=== PATIENT | female | born 1990 | race Caucasian/White ===

== ENCOUNTER → 2019-07-29 | Outpatient (CLI) | payer SELFPAY ==
--- NOTE | 2019-07-29 11:51 | RADIOLOGY REPORT (SQ) ---
EXAM DESCRIPTION: LUMBAR SPINE COMPLETE COMPLETED DATE/TIME: 07/29/2019 11:30 am REASON FOR STUDY: RADICULOPATHY, LUMBAR REGION M54.16 RADICULOPATHY, LUMBAR REGION COMPARISON: None. NUMBER OF VIEWS: Five views including obliques. TECHNIQUE: AP, lateral, oblique, and sacral radiographic images acquired of the lumbar spine. LIMITATIONS: None. FINDINGS: MINERALIZATION: Normal. SEGMENTATION: Normal. No transitional anatomy. ALIGNMENT: Minimal levoscoliosis at L1-2. VERTEBRAE: Maintained height. No fracture or worrisome bone lesion. DISCS: Preserved height. No significant osteophytes or end plate irregularity. POSTERIOR ELEMENTS: Pedicles and facets are intact. No pars defect or posterior arch defects. HARDWARE: None in the spine. PARASPINAL SOFT TISSUES: Normal. PELVIS: Intact as visualized. No fractures or worrisome bone lesions. SI joints intact. OTHER: No other significant finding. IMPRESSION: Minimal scoliosis. TECHNICAL DOCUMENTATION: JOB ID: [id number] [employer]- All Rights Reserved Reading location - IP/workstation name: [email or web address]
== END ==
LOC: OD 11:10
PROVIDERS: ATTEND Nurse Practitioner Family
DX: M54.16 Radiculopathy, lumbar region (principal)
CPT/HCPCS: 72110

== ENCOUNTER 2020-09-22 19:55 | Emergency (ER) | payer MEDICAID ==
[2020-09-22] MEDS ORDERED: KETOROLAC TROMETHAMINE INJ/PF 30 MG/1 ML SDV IV ONE (21:00)
--- NOTE | 2020-09-22 21:02 | ER Document Report ---
ED Medical Screen (RME) - General Chief Complaint: Abdominal Pain Stated Complaint: ABDOMINAL PAIN Time Seen by Provider: 09/22/20 20:56 Primary Care Provider: POLLY SRIVASTAVA FNP-C [Primary Care Provider] - Follow up as needed Mode of Arrival: Medic Information source: Patient Notes: 29-year-old female presents to ED for complaint of abdominal pain that started all over and now is just to the right upper abdomen and around to the back. She states that she has had no appetite morning and then this evening she tried to eat and she started vomiting. She states she has never had a history of kidney stones she does have history of PCOS. She also has a history of migraines asthma and anxiety. She states she does smoke 1/2 pack drinks occasionally but does not use any illicit drugs. She states that the EMS did give her Zofran and some fluids in the ambulance. I have greeted and performed a rapid initial assessment of this patient. A comprehensive ED assessment and evaluation of the patient, analysis of test results and completion of medical decision making process will be conducted by an additional ED providers. TRAVEL OUTSIDE OF THE [place] IN LAST 30 DAYS: No - Related Data Allergies/Adverse Reactions: No Known Allergies Allergy (Verified 09/22/20 20:57) Physical Exam - Vital signs Vitals: Temp Pulse Resp BP Pulse Ox 98.8 F 96 14 120/73 98 09/22/20 20:31 09/22/20 20:31 09/22/20 20:31 09/22/20 20:31 09/22/20 20:31 Course - Vital Signs Vital signs: Temp Pulse Resp BP Pulse Ox 98.8 F 96 14 120/73 98 09/22/20 20:31 09/22/20 20:31 09/22/20 20:31 09/22/20 20:31 09/22/20 20:31 Doctor's Discharge - Discharge Referrals: POLLY SRIVASTAVA FNP-C [Primary Care Provider] - Follow up as needed
[2020-09-22] MEDS ORDERED: MORPHINE SULFATE 10 MG/ML INJ IV ONE (23:05)
[2020-09-22] MEDS ORDERED: DIPHENHYDRAMINE HCL 50 MG/ML VIAL IV ONE (23:05)
[2020-09-22] MEDS ORDERED: NORMAL SALINE 1000 ML 1,000 ML IV ONE (23:06)
--- NOTE | 2020-09-22 23:10 | ER Document Report ---
ED GI/ - General Chief Complaint: Abdominal Pain Stated Complaint: ABDOMINAL PAIN Time Seen by Provider: 09/22/20 20:56 Mode of Arrival: Medic Notes: Patient is a 29-year-old female that comes emergency department chief complaint of nausea, vomiting, and abdominal pain that is mainly on the right side of the abdomen and radiates around to the mid back. Patient came by EMS and received Zofran in route, received Toradol from triage, states that she still is in a lot of pain. She states she has had intermittent pain for the past couple of days but it became a lot worse tonight and she vomited when she tried to eat. She has had a cholecystectomy and umbilical hernia repair. She has had a tubal ligation. She has a history of PCOS. She denies history of kidney stones. She denies dysuria, vaginal bleeding or discharge. She does admit to some constipation but states she has used milk of magnesia and a stool softener and has had bowel movements over the past couple of days. Remaining medical history reported to be migraines, asthma, anxiety, smoking, occasional alcohol. Denies recreational drugs. Denies . TRAVEL OUTSIDE OF THE [place] IN LAST 30 DAYS: No - Related Data Allergies/Adverse Reactions: acetaminophen [From Tylenol-Codeine #3] Adverse Reaction (Verified 09/22/20 22:37) clindamycin Adverse Reaction (Verified 09/22/20 22:37) codeine [From Tylenol-Codeine #3] Adverse Reaction (Verified 09/22/20 22:37) Home Medications: effexor. advair. albuterol. amlodipine. singular. clin dymycin Past Medical History - General Information source: Patient - Social History Smoking Status: Current Every Day Smoker Chew tobacco use (# tins/day): No Smoking Education Provided: Yes - <3 min Frequency of alcohol use: Occasional Drug Abuse: None Lives with: Family Family History: Reviewed & Not Pertinent Past Surgical History: Reports: Hx Cholecystectomy, Hx Tubal Ligation, Hx Umbilical Hernia - Immunizations Immunizations up to date: Yes Hx Diphtheria, Pertussis, Tetanus Vaccination: Yes Review of Systems - Review of Systems Constitutional: No symptoms reported EENT: No symptoms reported Cardiovascular: No symptoms reported Respiratory: No symptoms reported Gastrointestinal: See HPI Genitourinary: See HPI Female Genitourinary: No symptoms reported Musculoskeletal: No symptoms reported Skin: No symptoms reported Hematologic/Lymphatic: No symptoms reported Neurological/Psychological: No symptoms reported Physical Exam - Vital signs Vitals: Temp Pulse Resp BP Pulse Ox 98.8 F 96 14 120/73 98 09/22/20 20:31 09/22/20 20:31 09/22/20 20:31 09/22/20 20:31 09/22/20 20:31 - Notes Notes: GENERAL: Patient is restless and appears uncomfortable but she is not in severe distress. Oriented and alert HEAD: Normocephalic, atraumatic. EYES: Pupils equal, round, and reactive to light. Extraocular movements intact. ENT: Oral mucosa moist, tongue midline. Oropharynx unremarkable. Airway patent. NECK: Full range of motion. Supple. Trachea midline. No lymphadenopathy. LUNGS: Clear to auscultation bilaterally, no wheezes, rales, or rhonchi. No respiratory distress. Non-tender chest wall. HEART: Regular rate and rhythm. No murmur ABDOMEN: There is generalized mid to upper abdominal tenderness and some epigastric tenderness noted. Lower abdomen seems benign. No guarding or rigidity. No distention. Bowel sounds present throughout. EXTREMITIES: Moves all 4 extremities spontaneously. No edema, normal radial and dorsalis pedis pulses bilaterally. No cyanosis. BACK: No CVA tenderness. No cervical, thoracic, lumbar midline tenderness. No saddle anesthesia, normal distal neurovascular exam. Moves all extremities in full range of motion. NEUROLOGICAL: Alert and oriented x3. Normal speech. Cranial nerves II through XII grossly intact. Strength 5/5 in all extremities. PSYCH: Normal affect, normal mood. SKIN: Warm, dry, normal turgor. No rashes or lesions noted. Course - Re-evaluation Re-evalutation: Patient much more comfortable on reevaluation after pain and nausea medication. CBC unremarkable, chemistry unremarkable, urinalysis unremarkable. hCG is negative. I did review the CAT scan from triage and this shows no acute process. Appendix visualized is normal. No passing ureterolithiasis or obstruction, no concerning findings. No significant constipation either. Repeated abdominal exam, pain is definitely upper abdomen. She has had a cholecystectomy. Patient takes frequent anti-inflammatories, smokes, has a long history of reflux reportedly. I suspect gastritis. Based on her exam and work-up I have a low suspicion of acute abdomen. I discussed this with patient, discussed recommendations, follow-up, return precautions. Patient states understanding and agreement. Stable and well-appearing at time of discharge. - Vital Signs Vital signs: Temp Pulse Resp BP Pulse Ox 98.1 F 97 14 119/81 98 09/23/20 01:31 09/23/20 01:31 09/22/20 20:31 09/23/20 01:31 09/23/20 01:31 - Laboratory Result Diagrams: 09/22/20 22:45 09/22/20 22:45 Laboratory results interpreted by me: 09/22/20 09/22/20 22:45 22:45 WBC 10.9 H RBC 5.66 H MCV 72 L MCH 23.7 L RDW 15.2 H Sodium 135.7 L Discharge - Discharge Clinical Impression: Abdominal pain Qualifiers: Abdominal location: generalized Qualified Code(s): R10.84 - Generalized abdominal pain Vomiting Qualifiers: Vomiting type: unspecified Vomiting Intractability: non-intractable Nausea presence: with nausea Qualified Code(s): R11.2 - Nausea with vomiting, unspecified Condition: Stable Disposition: HOME, SELF-CARE Instructions: Oral Narcotic Medication ([facility]) Additional Instructions: Based on your symptoms, examination, and work-up I suspect you have gastritis (inflammation of your upper gastrointestinal tract). Take Phenergan/Zofran for nausea, take Carafate and Pepcid as prescribed to help treat this, you can take additional Rolaids, Tums, Maalox, etc. if needed. You can take Tylenol and the medication provided tonight for pain. Avoid NSAIDs, alcohol, smoking, caffeine, spicy food. Start with clear fluids, progress to bland diet. Follow-up with primary care for additional evaluation and treatment including possible H. pylori testing. Return if you worsen including uncontrolled vomiting, vomiting blood, black stools, severe pain, fever of 100.4 or greater, or any other concerning or worsening symptoms. Prescriptions: Sucralfate [Carafate 1 gm Tablet] 1 gm PO QID #20 tablet Famotidine [Pepcid 20 mg Tablet] 20 mg PO BID #20 tablet Promethazine HCl [Phenergan 25 mg Tablet] 25 mg PO Q6H PRN #20 tablet PRN Reason: Forms: Smoking Cessation Education
[2020-09-22 23:11] LABS: ABSOLUTE BASOPHILS # (AUTO) 0.1 10^3/uL (0.0-0.2); ABSOLUTE EOSINOPHILS # (AUTO) 0.1 10^3/uL (0.0-0.6); ABSOLUTE LYMPHOCYTES (AUTO) 3.8 10^3/uL (0.5-4.7); ABSOLUTE MONOCYTES (AUTO) 0.7 10^3/uL (0.1-1.4); ABSOLUTE NEUT (AUTO) 6.3 10^3/uL (1.7-8.2); HEMOGLOBIN 13.4 g/dL (12.0-15.5); TOTAL CELLS COUNTED % (AUTO) 100 %
[2020-09-22 23:28] LABS: ALBUMIN 4.1 g/dL (3.5-5.0); ALKALINE PHOSPHATASE 85 U/L (38-126); ANION GAP 6 (5-19); ASPARTATE AMINO TRANSFERASE 25 U/L (14-36); BILIRUBIN,DIRECT 0.1 mg/dL (0.0-0.4); BILIRUBIN,TOTAL 0.4 mg/dL (0.2-1.3); BLOOD UREA NITROGEN 8 mg/dL (7-20); CALCIUM 9.4 mg/dL (8.4-10.2); CARBON DIOXIDE 26 mmol/L (22-30); CHLORIDE 104 mmol/L (98-107); GLUCOSE 78 mg/dL (75-110); POTASSIUM 4.3 mmol/L (3.6-5.0); TOTAL PROTEIN 7.4 g/dL (6.3-8.2)
[2020-09-22 23:30] LABS: BASOPHILS % (AUTO) 0.7 % (0-2); EOSINOPHILS % (AUTO) 0.7 % (0-6); HEMATOCRIT 40.7 % (36.0-47.0); LYMPHOCYTES % (AUTO) 34.8 % (13-45); MEAN CORPUSCULAR HEMOGLOBIN 23.7 pg (27.0-33.4); MEAN CORPUSCULAR HGB CONC 32.9 g/dL (32.0-36.0); MEAN CORPUSCULAR VOLUME 72 fl (80-97); MONOCYTES % (AUTO) 6.3 % (3-13); PLATELET COUNT 413 10^3/uL (150-450); RED BLOOD COUNT 5.66 10^6/uL (3.72-5.28); RED CELL DISTRIBUTION WIDTH 15.2 % (11.5-14.0); SEGMENTED NEUTROPHILS % (AUTO) 57.5 % (42-78); WHITE BLOOD COUNT 10.9 10^3/uL (4.0-10.5)
[2020-09-22] MEDS ORDERED: METOCLOPRAMIDE HCL INJ/PF 10 MG/2 ML SDV IV ONE (23:57)
--- NOTE | 2020-09-23 00:34 | RADIOLOGY REPORT (SQ) ---
EXAM DESCRIPTION: CT ABD/PELVIS NO ORAL OR IV CLINICAL HISTORY: 29 years Female; Right flank pain TECHNIQUE: CT of the abdomen and pelvis without intravenous contrast.. Oral contrastWas not used. All CT scans at this facility use dose modulation, iterative reconstruction, and/or weight based dosing when appropriate to reduce radiation dose to as low as reasonably achievable. This exam was performed according to our department optimization program which includes automated exposure control, adjustment of the mA and/or kv according to patient size and/or use of iterative reconstruction technique. COMPARISON: None. FINDINGS: Lower chest:The lung bases are clear. The visualized portion of heart and great vessels are normal. Abdomen: Liver and biliary tree: The liver is enlarged and measures 22.2 cm in length. Gallbladder is not clearly identified. Pancreas: Normal Spleen:Within normal limits Kidneys: Kidneys are normal in size, shape and position. No stones. No mass or hydronephrosis. Adrenal glands:Within normal limits Vascular structures:Within normal limits Retroperitoneum: No mass or lymphadenopathy Abdominal wall: Postsurgical changes present in the anterior abdominal wall. There appears to been previous umbilical hernia repair with mesh. GI: Scattered diverticula in the colon. No evidence of diverticulitis. There is minimal stool in the right colon. No bowel obstruction. Appendix: The appendix appears normal. General: No free air. No free fluid Pelvis: Lymph nodes: No mass or lymphadenopathy Bladder: The bladder is mostly empty. Pelvis: No pelvic mass or adenopathy. Bones: No acute bone findings. IMPRESSION: 1. No renal or ureteral stones. 2. Hepatomegaly. 3. No acute process in the abdomen or pelvis.
[2020-09-23 00:55] LABS: APPEARANCE,URINE CLEAR; BILIRUBIN,URINE NEGATIVE (NEGATIVE); COLOR,URINE YELLOW; GLUCOSE, URINE NEGATIVE (NEGATIVE); KETONES,URINE NEGATIVE (NEGATIVE); LEUKOCYTE ESTERASE,URINE NEGATIVE (NEGATIVE); NITRITE,URINE NEGATIVE (NEGATIVE); PROTEIN,URINE NEGATIVE (NEGATIVE); URINE SPECIFIC GRAVITY 1.012; UROBILINOGEN,URINE NEGATIVE mg/dL (<2.0)
[2020-09-23] MEDS ORDERED: HYDROCODONE/ACETAMINOPHEN 5-325 MG (6 TAB/ER DISP) PO PRN (01:10)
[2020-09-23] MEDS ORDERED: ONDANSETRON ODT 4 MG TAB (6 TAB/ER DISP) PO PRN (01:10)
[2020-09-23] MEDS ORDERED: SUCRALFATE 1 GM TABLET PO ONE (01:11)
[2020-09-23] MEDS ORDERED: FAMOTIDINE 20 MG TABLET PO ONE (01:11)
[2020-09-23 01:35] VITALS: BP 119/81
== END 2020-09-23 01:38 | disposition home or self-care (01) ==
LOC: ER 19:55
DX: R10.84 Generalized abdominal pain (principal); K21.9 Gastro-esophageal reflux disease without esophagitis; R16.0 Hepatomegaly, not elsewhere classified; R10.816 Epigastric abdominal tenderness; R11.2 Nausea with vomiting, unspecified; J45.909 Unspecified asthma, uncomplicated; F17.200 Nicotine dependence, unspecified, uncomplicated; F41.9 Anxiety disorder, unspecified; Z79.51 Long term (current) use of inhaled steroids; Z79.899 Other long term (current) drug therapy; Z79.2 Long term (current) use of antibiotics; Z90.49 Acquired absence of other specified parts of digestive tract; Z98.890 Other specified postprocedural states; Z98.51 Tubal ligation status; Z87.19 Personal history of other diseases of the digestive system
CPT/HCPCS: 99285; 96361; 96374; 96375; 36415; 87086; 84702; 83690; 85025; 80053; 81001; 74176; J3490 ×2; J1200; J1885; J2765; J2270; J7030